=== PATIENT | male | born 1970 | race Caucasian/White ===

== ENCOUNTER 2017-11-28 02:41 | Emergency (ER) | payer OTHER ==
[~2017-11-28] VITALS: Ht 193 cm; Wt 136.1 kg
[2017-11-28] MEDS ORDERED: RX-CEPHALEXIN (KEFLEX) 250 MG CAP PPK#4 PO STA (02:51)
[2017-11-28] MEDS ORDERED: LORazepam 0.5 MG (ATIVAN) TABLET ONE (02:52)
--- NOTE | 2017-11-28 02:53 | ED Lower Extremity ---
General Stated Complaint: L FOOT INJ Source: patient, spouse Exam Limitations: no limitations History of Present Illness Date Seen by Provider: November 28, 2017 Time Seen by Provider: 02:44 Initial Comments The patient presents to the ER by private conveyance with a chief complaint of one hour prior to arrival he was chopping up some onions on his [employer] and he dropped the knife directly into his left foot on the dorsum. He bandaged it himself he could not get it stopped bleeding. He thinks his last tetanus shot was greater than 5 years ago but he does not remember. He is not on any blood thinners. He has not taken anything for pain and the pain is not too bad he just doesn't like the side of his own blood because him to become nauseated. He has no known drug allergies. Allergies and Home Medications Allergies Coded Allergies: No Known Drug Allergies (Unverified , 11/28/17) Home Medications Cephalexin 500 Mg Tablet, 500 MG PO QID Prescribed by: MEGAN HENDRICKSON on 11/28/17 2003 Patient Home Medication List Home Medication List Reviewed: Yes Constitutional: No chills, No diaphoresis EENTM: No ear discharge, No ear pain Respiratory: No cough, No short of breath Cardiovascular: No chest pain, No edema Gastrointestinal: No abdominal pain, No constipation, No diarrhea, No nausea, No vomiting Genitourinary: No discharge, No dysuria Musculoskeletal: No back pain, No joint pain Skin: see HPI Past Tveboxd-Lmujdj-Dgihmh Hx Patient Social History Alcohol Use: Denies Use Recreational Drug Use: No Smoking Status: Never a Smoker Recent Foreign Travel: No Contact w/Someone Who Travel: No Physical Exam Vital Signs Capillary Refill : General Appearance: WD/WN, no apparent distress HEENT: PERRL/EOMI, pharynx normal Neck: non-tender, normal inspection Cardiovascular: normal peripheral pulses, regular rate, rhythm Respiratory: no respiratory distress, no accessory muscle use Gastrointestinal: non tender, soft Back: normal inspection, no vertebral tenderness Hips: bilateral hip non-tender, bilateral hip normal inspection, bilateral hip normal range of motion, bilateral hip no evidence of injury Legs: bilateral leg non-tender, bilateral leg normal inspection, bilateral leg normal range of motion, bilateral leg no evidence of injury Knees: bilateral knee non-tender, bilateral knee normal inspection, bilateral knee normal range of motion, bilateral knee no evidence of injury Ankles: bilateral ankle non-tender, bilateral ankle normal inspection, bilateral ankle normal range of motion, bilateral ankle no evidence of injury Feet: bilateral foot non-tender, bilateral foot normal inspection, bilateral foot normal range of motion, bilateral foot no evidence of injury Neurologic/Tendon: normal sensation, normal motor functions, responds to pain, no evidence tendon injury, tendon function deficit (slight loss of extension of the first digit of the left foot) Neurologic/Psychiatric: alert, normal mood/affect, oriented x 3 Skin: normal color, warm/dry, other (laceration down to the extensor tendons of the left foot dorsum between second third digit approximately 3 cm long) Procedures/Interventions Wound Location: Lower Extremities Other Wound Location Left foot Wound Length (cm): 3 Wound's Depth, Shape: linear, sub Q, tendon Wound Explored: clean Irrigated w/ Saline (ccs): 50 Betadine Prep?: No (chlorhexidine soap water) Anesthesia: 1% Lidocaine Volume Anesthetic (ccs): 3 Wound Debrided: minimal Suture: Prolene Suture Size: 2-0 Number of Sutures: 4 Layer Closure?: 1 Sterile Dressing Applied?: Yes Progress The patient's wound was cleaned thoroughly with chlorhexidine soap water and then the wound edges were infiltrated with 1% lidocaine without epinephrine. When the patient was ascertained to be numb he was then thoroughly cleaned and irrigated with chlorhexidine soap water again, draped out in the usual sterile fashion and 4 simple interrupted Prolene stitches were placed reapproximating the wound edges. The patient tolerated the procedure well. Progress/Results/Core Measures Results/Orders My Orders Orders - MEGAN HENDRICKSON Cephalexin Capsule (Keflex Capsule) (11/28/17 03:00) Rx-Cephalexin Capsule (Rx-Keflex Capsule (11/28/17 02:51) Ondansetron Oral Dissolve Tab (Zofran (11/28/17 03:00) Dipht,Pertuss(Acell),Tet Adult (Boostrix (11/28/17 03:00) Lorazepam Tablet (Ativan Tablet) (11/28/17 03:00) Lorazepam Tablet (Ativan Tablet) (11/28/17 02:52) Medications Given in ED Current Medications Medications Dose Ordered Sig/Lexy Route Start Time Stop Time Status Last Admin Dose Admin Cephalexin HCl 500 mg ONCE ONCE PO 11/28/17 03:00 11/28/17 03:01 DC 11/28/17 02:58 500 MG Diphtheria/ Tetanus/Acell Pertussis 0.5 ml ONCE ONCE IM 11/28/17 03:00 11/28/17 03:01 DC 11/28/17 03:00 0.5 ML Lorazepam 0.5 mg ONCE ONCE PO 11/28/17 03:00 11/28/17 03:01 DC 11/28/17 02:58 0.5 MG Ondansetron HCl 4 mg ONCE ONCE PO 11/28/17 03:00 11/28/17 03:01 DC 11/28/17 02:58 4 MG Progress Progress Note : Time: 06:06 Progress Note The patient has some mild loss of the complete extension of his left first digit. The tendon can be said visualized and is partially lacerated but more than half of it is intact. Departure Impression Primary Impression: Foot laceration involving tendon Qualified Codes: S91.312A - Laceration without foreign body, left foot, initial encounter; S96.922A - Laceration of unspecified muscle and tendon at ankle and foot level, left foot, initial encounter Disposition: HOME, SELF-CARE Condition: Improved Departure-Patient Inst. Decision time for Depature: 04:53 Referrals: ANTHONY RUCKER DO Patient Instructions: Laceration Repair With Stitches (DC) Add. Discharge Instructions: Return to the ER or follow up with the provider of your choice to have the stitches out in 7-10 days. Keep them clean with regular soap and water and a dressing. Follow-up with orthopedic surgery to have your foot evaluated within 1 -2 weeks. Use Tylenol 1000 mg every 8 hours and/or ibuprofen 800 mg every 8 hours as needed for pain. Scripts Cephalexin (Cephalexin) 500 Mg Tablet 500 MG PO QID for 3 Days, #15 TAB 0 Refills Prov: MEGAN HENDRICKSON 11/28/17 Copy Copies To 1: ANTHONY RUCKER TITUS J November 28, 2017 02:53
[2017-11-28] MEDS ORDERED: CEPHALEXIN 250 MG (KEFLEX) CAP PO ONE (03:00)
[2017-11-28] MEDS ORDERED: LORazepam 0.5 MG (ATIVAN) TABLET PO ONE (03:00)
[2017-11-28] MEDS ORDERED: ONDANSETRON 4 MG (ZOFRAN) ORAL DISSOLVE TAB PO ONE (03:00)
[2017-11-28] MEDS ORDERED: TETANUS,DIPTH,PERTUSS P/F (BOOSTRIX) 0.5 ML VIAL IM ONE (03:00)
[2017-11-28] MEDS ORDERED: CEPH500T PO (04:55)
[2017-11-28 05:05] VITALS: BP 118/91
== END 2017-11-28 05:05 | disposition home or self-care (01) ==
LOC: ER 02:45
DX: S96.122A Laceration of muscle and tendon of long extensor muscle of toe at ankle and foot level, left foot, initial encounter (principal); Z23 Encounter for immunization; W26.0XXA Contact with knife, initial encounter
CPT/HCPCS: 12001; 90471; 90715